=== PATIENT | male | born 1965 | race Caucasian/White ===

== ENCOUNTER 2018-01-24 17:56 | Inpatient (IN) | payer MEDICARE, OTHER ==
[~2018-01-24] VITALS: Ht 200.7 cm; Wt 101.2 kg
[2018-01-24] MEDS: SODIUM BICARBONATE 8.4% 150 MEQ in DEXTROSE 5% 1,000 ML IV SCH (00:50)
[2018-01-24 18:32] LABS: BASOPHILS # (AUTO) 0.03 x10^3/uL (0-0.1); BASOPHILS % (AUTO) 1 % (0-1); EOSINOPHILS # (AUTO) 0.05 x10^3/uL (0-0.4); EOSINOPHILS % (AUTO) 1 % (1-7); LYMPHOCYTES # (AUTO) 1.84 x10^3/uL (1-3.4); LYMPHOCYTES % (AUTO) 33 % (22-44); MD NO; MEAN CORPUSCULAR HEMOGLOBIN 34.3 pg (27.5-34.5); MEAN CORPUSCULAR HGB CONC 34.3 g/dL (33.2-36.2); MEAN PLATELET VOLUME 8.2 fL (7.4-10.4); MONOCYTES # (AUTO) 0.45 x10^3/uL (0.2-0.8); MONOCYTES % (AUTO) 8 % (2-9); NEUTROPHILS % (AUTO) 58 % (42-75); PLATELET COUNT 249 x10^3/uL (130-400); RED BLOOD COUNT 4.81 x10^6/uL (4.38-5.82); RED CELL DISTRIBUTION WIDTH 14.2 % (9.4-14.8)
[2018-01-24 18:44] LABS: ANION GAP 5 mmol/L (5-15); CALCIUM 8.5 mg/dL (8.5-10.1); CHLORIDE 117 mmol/L (98-107); CREATININE 1.18 mg/dL (0.7-1.3)
[2018-01-24 18:50] LABS: SALICYLATE LEVEL 51.9 mg/dL (2.8-20.0)
[2018-01-24] MEDS ORDERED: SODIUM CHLORIDE 0.9% 1,000ML IVBOLUS ONE (19:30)
[2018-01-24] MEDS ORDERED: MORPHINE SULFATE 4 MG/ML, 1ML IVPush PRN ×2 (19:30→22:00)
[2018-01-24] MEDS ORDERED: SODIUM CHLORIDE FLUSH 10ML SYR IVF ONE (19:30)
[2018-01-24] MEDS ORDERED: PROCHLORPERAZINE 5 MG/ML, 2ML IVPush ONE (19:30)
[2018-01-24] MEDS ORDERED: MORPHINE SULFATE 4 MG/ML, 1ML ONE (20:20)
[2018-01-24] MEDS ORDERED: PROCHLORPERAZINE 5 MG/ML, 2ML ONE (20:20)
[2018-01-24] MEDS ORDERED: SODIUM BICARBONATE 8.4% 150 MEQ in DEXTROSE 5% 1,000 ML IV ONE (20:31)
[2018-01-24] MEDS ORDERED: SODIUM BICARB 8.4%, 50ML SYRINGE ONE (20:36)
[2018-01-24 20:59] LABS: ACETAMINOPHEN < 2 mcg/mL (10-30)
[2018-01-24] MEDS ORDERED: SODIUM BICARBONATE 1 MEQ/ML, 50ML VIAL IVPush ONE (21:00)
[2018-01-24] MEDS ORDERED: DEXTROSE 5% 1,000 ML IV SCH (22:00)
[2018-01-24] MEDS ORDERED: hydrALAzine 20 MG/ML, 1ML IVPush PRN (22:00)
[2018-01-24] MEDS ORDERED: ONDANSETRON 2MG/ML, 2ML IVPush PRN (22:00)
[2018-01-25 00:50] VITALS: BP 129/86
[2018-01-25] MEDS: SODIUM BICARBONATE 8.4% 150 MEQ in DEXTROSE 5% 1,000 ML IV SCH ×2 (01:10→04:24)
[2018-01-25 01:42] LABS: ALANINE AMINOTRANSFERASE 32 U/L (12-78); ALBUMIN 3.3 g/dL (3.4-5.0); ANION GAP 4 mmol/L (5-15); CALCIUM 7.6 mg/dL (8.5-10.1); CHLORIDE 115 mmol/L (98-107); CREATININE 1.06 mg/dL (0.7-1.3)
[2018-01-25 01:44] LABS: ALKALINE PHOSPHATASE 55 U/L (45-117); BILIRUBIN,TOTAL 0.3 mg/dL (0.2-1.0); TOTAL PROTEIN 6.2 g/dL (6.4-8.2)
[2018-01-25 02:00] VITALS: BP 108/58
[2018-01-25] MEDS ORDERED: POTASSIUM CHLORIDE 20 MEQ TAB.ER.PRT PO ONE ×2 (03:00→12:00)
[2018-01-25] MEDS: MORPHINE SULFATE 4 MG/ML, 1ML IVPush PRN ×2 (03:13→09:42)
[2018-01-25 06:28] LABS: CHLORIDE 114 mmol/L (98-107)
[2018-01-25 06:46] LABS: ALANINE AMINOTRANSFERASE 32 U/L (12-78); ALBUMIN 3.3 g/dL (3.4-5.0); ALKALINE PHOSPHATASE 52 U/L (45-117); ANION GAP 8 mmol/L (5-15); BILIRUBIN,TOTAL 0.4 mg/dL (0.2-1.0); CREATININE 0.89 mg/dL (0.7-1.3)
[2018-01-25 07:05] VITALS: BP 113/75
[2018-01-25] MEDS ORDERED: POTASSIUM CHLORIDE 20 MEQ TAB.ER.PRT PO SCH ×2 (09:00)
[2018-01-25] MEDS ORDERED: LACTATED RINGERS 1,000 ML IV SCH (09:30)
[2018-01-25] MEDS ORDERED: KETOROLAC 30 MG/1 ML IVPush SCH (09:30)
[2018-01-25] MEDS ORDERED: DIPHENHYDRAMINE 50 MG/ML, 1ML IVPush ONE (09:30)
[2018-01-25] MEDS ORDERED: PROCHLORPERAZINE 5 MG/ML, 2ML IVPush ONE (09:30)
[2018-01-25 13:13] VITALS: BP 123/67
[2018-01-25] MEDS ORDERED: SODIUM CHLORIDE NASAL SPRAY 45ML BOTTLE NAS PRN (14:00)
[2018-01-25] MEDS: METHOCARBAMOL 750 MG TABLET PO SCH ×2 (18:34→22:40)
[2018-01-25 19:42] VITALS: BP 108/65
[2018-01-25] MEDS ORDERED: KETOROLAC 30 MG/1 ML IVPush ONE (22:30)
[2018-01-26 02:15] VITALS: BP 116/78
[2018-01-26 05:29] LABS: BASOPHILS # (AUTO) 0.03 x10^3/uL (0-0.1); BASOPHILS % (AUTO) 1 % (0-1); EOSINOPHILS # (AUTO) 0.07 x10^3/uL (0-0.4); EOSINOPHILS % (AUTO) 2 % (1-7); LYMPHOCYTES # (AUTO) 2.22 x10^3/uL (1-3.4); LYMPHOCYTES % (AUTO) 48 % (22-44); MD NO; MEAN CORPUSCULAR HEMOGLOBIN 33.5 pg (27.5-34.5); MEAN CORPUSCULAR HGB CONC 33.3 g/dL (33.2-36.2); MEAN CORPUSCULAR VOLUME 100.6 fL (81-97); MEAN PLATELET VOLUME 8.4 fL (7.4-10.4); MONOCYTES # (AUTO) 0.41 x10^3/uL (0.2-0.8); MONOCYTES % (AUTO) 9 % (2-9); NEUTROPHILS # (AUTO) 1.85 x10^3/uL (1.8-6.8); NEUTROPHILS % (AUTO) 40 % (42-75); PLATELET COUNT 229 x10^3/uL (130-400); RED BLOOD COUNT 4.32 x10^6/uL (4.38-5.82); RED CELL DISTRIBUTION WIDTH 14.3 % (9.4-14.8)
[2018-01-26 05:30] LABS: ANION GAP 5 mmol/L (5-15); CALCIUM 8.7 mg/dL (8.5-10.1); CHLORIDE 113 mmol/L (98-107); CREATININE 0.96 mg/dL (0.7-1.3)
[2018-01-26] MEDS: METHOCARBAMOL 750 MG TABLET PO SCH ×4 (06:19→21:48)
[2018-01-26 07:07] VITALS: BP 119/86
[2018-01-26 13:54] VITALS: BP 138/86
[2018-01-26 19:03] VITALS: BP 139/92
[2018-01-27 04:40] VITALS: BP 115/79
[2018-01-27 05:00] VITALS: BP 125/83
[2018-01-27] MEDS: METHOCARBAMOL 750 MG TABLET PO SCH ×2 (06:07→10:33)
[2018-01-27] MEDS ORDERED: METH500T97 PO (09:55)
== END 2018-01-27 10:36 | disposition home or self-care (01) | DRG 918 ==
LOC: ED 21:04 → SUATTDRO 21:24 → EDIP 21:38 → 4WST 21:58
PROVIDERS: ADMIT Hospitalist; ATTEND Hospitalist
DX: T39.011A Poisoning by aspirin, accidental (unintentional), initial encounter (principal); E87.0 Hyperosmolality and hypernatremia; G89.29 Other chronic pain; E87.6 Hypokalemia; G43.C0 Periodic headache syndromes in child or adult, not intractable; H93.19 Tinnitus, unspecified ear; S16.1XXA Strain of muscle, fascia and tendon at neck level, initial encounter; X58.XXXA Exposure to other specified factors, initial encounter; Y93.89 Activity, other specified; Y92.89 Other specified places as the place of occurrence of the external cause; Z95.0 Presence of cardiac pacemaker
CPT/HCPCS: 36415; 70450; 72125; 80048; 80053; 80307; 80329; 83735; 85025; 93005; 96361; 96374; 96375; J1885; J7070; G0480; J0780; J1200; J7030; J7120